=== PATIENT | female | born 1955 | race Two or more races ===

== ENCOUNTER 2019-11-17 17:13 | Emergency (ER) | payer OTHER ==
[~2019-11-17] VITALS: Ht 157.5 cm; Wt 47.2 kg
[2019-11-17] MEDS ORDERED: CLONAZEPAM1 GM MC (17:38)
[2019-11-17] MEDS ORDERED: DESILAN (17:38)
== END 2019-11-17 22:29 | disposition home or self-care (01) ==
LOC: ER 17:13
DX: K57.90 Diverticulosis of intestine, part unspecified, without perforation or abscess without bleeding (principal)

== ENCOUNTER 2019-12-15 05:25 | Day surgery (SDC) | payer OTHER ==
[~2019-12-15 05:25] MED LIST: CLONAZEPAM1 GM MC; DESILAN
== END 2019-12-15 10:20 | disposition home or self-care (01) ==
LOC: AMB-ENDOS 05:25
DX: D12.2 Benign neoplasm of ascending colon (principal); D12.4 Benign neoplasm of descending colon; D12.5 Benign neoplasm of sigmoid colon

== ENCOUNTER 2021-06-01 19:57 | Inpatient (IN) | payer OTHER ==
[~2021-06-01] VITALS: Ht 157.5 cm; Wt 51.7 kg
[2021-06-01] MEDS ORDERED: MAXIMUM D3325 MCG PO (21:08)
[2021-06-01] MEDS ORDERED: FAMOTIDINE20 MG PO (21:08)
[2021-06-01] MEDS ORDERED: CLONAZEPAM1 MG PO (21:08)
[2021-06-01] MEDS ORDERED: ARTHRITIS PAIN650 MG PO (21:08)
[2021-06-01] MEDS ORDERED: MONTELUKAST SOD10 MG PO (21:08)
[2021-06-06] MEDS ORDERED: AMOX1TAB5 PO (12:59)
[2021-06-06] MEDS ORDERED: INTESTINEX680 M1 PO (12:59)
[2021-06-06] MEDS ORDERED: LEVSIN/SL0.125 MG SL (13:00)
== END 2021-06-06 13:54 | disposition home or self-care (01) | DRG 392 ==
LOC: ER 19:57 → SURG 23:38 → O/R 06-05 13:46 → SURG 06-05 13:49
PROVIDERS: ADMIT Surgery; ATTEND Surgery
DX: K57.92 Diverticulitis of intestine, part unspecified, without perforation or abscess without bleeding (principal)

== ENCOUNTER 2022-03-15 15:48 | Inpatient (IN) | payer OTHER ==
[~2022-03-15] VITALS: Ht 157.5 cm; Wt 51.3 kg
[~2022-03-15 15:48] MED LIST changes: +AMOX1TAB5 PO; +ARTHRITIS PAIN650 MG PO; +CLONAZEPAM1 MG PO; +FAMOTIDINE20 MG PO; +INTESTINEX680 M1 PO; +LEVSIN/SL0.125 MG SL; +MAXIMUM D3325 MCG PO; +MONTELUKAST SOD10 MG PO
[2022-03-15] MEDS ORDERED: SPIRIVA RESPIMAT4 G1 IH (16:01)
[2022-03-19] MEDS ORDERED: AYR SALINE50 ML (11:37)
[2022-03-19] MEDS ORDERED: ROSUVASTATIN CA10 MG (11:37)
[2022-03-19] MEDS ORDERED: NORVASC2.5 MG (11:38)
[2022-03-20] MEDS ORDERED: FAMOTIDINE20 MG PO (16:43)
[2022-03-20] MEDS ORDERED: MONTELUKAST SOD10 MG PO (16:43)
[2022-03-20] MEDS ORDERED: LOSARTAN POTASS25 MG PO (16:43)
[2022-03-20] MEDS ORDERED: PROTONIX40 MG PO (16:43)
[2022-03-20] MEDS ORDERED: CARAFATE1 GM PO (16:43)
[2022-03-20] MEDS ORDERED: CLONAZEPAM0.5 MG PO (16:43)
[2022-03-20] MEDS ORDERED: INTESTINEX680 M1 PO (16:43)
[2022-03-20] MEDS ORDERED: AMOX1TAB5 PO (16:43)
[2022-03-20] MEDS ORDERED: HYOSCYAMINE0.125 M1 SL (16:43)
== END 2022-03-20 18:23 | disposition home or self-care (01) | DRG 392 ==
LOC: ER 15:48 → MEDJ 03-16 09:16 → MEDI 03-17 16:08
PROVIDERS: ADMIT Internal Medicine; ATTEND Internal Medicine
PROC: BW210ZZ Computerized Tomography (CT Scan) of Abdomen and Pelvis using High Osmolar Contrast (ICD-10-PCS; principal; 2022-03-16)
DX: K57.32 Diverticulitis of large intestine without perforation or abscess without bleeding (principal); K29.00 Acute gastritis without bleeding; Z20.822 Contact with and (suspected) exposure to COVID-19